=== PATIENT | male | born 1940 | race Hispanic/Latino ===

== ENCOUNTER 2020-07-04 19:56 | Emergency (ER) | payer OTHER, SELFPAY ==
[2020-07-04] MEDS ORDERED: Fentanyl 100 MCG/2 ML VIAL ONE ×2 (20:32→20:48)
[2020-07-05] MEDS ORDERED: PROPOFOL 20 ML ONE
== END 2020-07-05 02:09 ==
LOC: CSHERS 19:56
DX: S43.015A Anterior dislocation of left humerus, initial encounter (principal); I25.10 Atherosclerotic heart disease of native coronary artery without angina pectoris; I11.0 Hypertensive heart disease with heart failure; I50.9 Heart failure, unspecified; Z87.19 Personal history of other diseases of the digestive system; Z86.711 Personal history of pulmonary embolism; Z79.01 Long term (current) use of anticoagulants; Z79.899 Other long term (current) drug therapy; X50.1XXA Overexertion from prolonged static or awkward postures, initial encounter
CPT/HCPCS: 23650; 96374; 99152; J2704; J3010

== ENCOUNTER 2021-03-15 22:21 | Observation (INO) | payer OTHER ==
[2021-03-15] MEDS ORDERED: Senokot S 8.6-50 MG TAB PO PRN (22:51)
[2021-03-15] MEDS ORDERED: Calcium Carbonate 500 MG ChewTAB PO PRN (22:51)
[2021-03-15] MEDS ORDERED: HYDROcodone/Acetaminophen 5/325 mg Tablet PO PRN (22:51)
[2021-03-15] MEDS ORDERED: Nitroglycerin 0.4 MG TAB (25 Tab Bottle) SL PRN (22:51)
[2021-03-15] MEDS ORDERED: Ondansetron PF 4 MG/2 ML Vial IVP PRN (22:51)
[2021-03-16] MEDS ORDERED: Atorvastatin Calcium 40 MG TAB PO SCH ×2 (00:30→21:00)
[2021-03-16] MEDS ORDERED: Carvedilol 3.125 MG TAB PO SCH (00:30)
[2021-03-16] MEDS ORDERED: Sodium Chloride 0.9% 500 ML IV SCH (00:30)
[2021-03-16] MEDS ORDERED: Carvedilol 3.125 MG TAB ONE (03:07)
[2021-03-16] MEDS ORDERED: Atorvastatin Calcium 40 MG TAB ONE (03:08)
[2021-03-16 05:13] LABS: Troponin I 0.021 ng/mL (< 0.028)
[2021-03-16 05:33] VITALS: BMI 25.0
[2021-03-16 05:52] LABS: INR-International Normal Ratio 1.1; PTT 27.7 sec (22.0-33.0)
[2021-03-16 06:15] LABS: #Eosinphils 0.2 10x3/uL (0.0-0.5); #Monocytes 0.7 10x3/uL (0.0-1.1); #Neutrophils 4.1 10x3/uL (1.5-8.4); %Basophils 0.1 % (0.0-2.0); %Eosinophils 3.2 % (0.0-6.0); %Lymphocytes 27.3 % (18.0-47.0); %Monocytes 9.5 % (0.0-10.0); %Neutrophils 59.8 % (40.0-75.0); Hemoglobin 12.1 g/dL (13.5-17.5); Mean Corpuscular HGB CONC 32.1 g/dL (32.0-36.0); Mean Corpuscular Hemoglobin 28.7 pg (27.0-33.0); Mean Corpuscular Volume 89.5 fl (81.2-95.1); Mean Platelet Volume 10.9 fl (7.4-10.4); Platelet Count 150 10x3/uL (150-450); RBC Distribution Width 13.9 % (11.5-14.5); Red Blood Cell (RBC) Count 4.21 10x6/uL (4.32-5.72); White Blood Cell (WBC) Count 6.9 10x3/uL (3.5-10.5)
[2021-03-16 06:17] LABS: Anion Gap 11 mmol/L (10-20); BUN (Urea Nitrogen) 20 mg/dL (8.4-25.7); Calc. Creatinine Clearance 64 mL/min (70-130); Calcium 9.1 mg/dL (7.8-10.44); Carbon Dioxide 27 mmol/L (23-31); Cardiac Risk 3.5 (Less than 4.5); Chloride 108 mmol/L (98-107); Cholesterol 91 mg/dl (< 200 Desired); Glucose 96 mg/dL (83-110); HDL Cholesterol 26 mg/dL (>60 Neg Risk); LDL Cholesterol, Calculated 47 mg/dL; Potassium 4.1 mmol/L (3.5-5.1); Sodium 142 mmol/L (136-145); Triglycerides 90 mg/dL (Less than 150)
[2021-03-16 06:24] LABS: Troponin I 0.019 ng/mL (< 0.028)
[2021-03-16] MEDS: Spironolactone 25 MG TAB PO SCH (08:22)
[2021-03-16] MEDS: Lisinopril 2.5 MG TAB PO SCH (08:22)
[2021-03-16] MEDS: Aspirin Chewable 81 MG TAB PO SCH (08:22)
[2021-03-16] MEDS: Carvedilol 6.25 MG TAB PO SCH ×2 (08:23→17:32)
[2021-03-16] MEDS: Famotidine 20 MG TAB PO SCH ×2 (08:23→20:59)
[2021-03-16] MEDS: Acetaminophen 325 MG TAB PO PRN (08:31)
[2021-03-16] MEDS ORDERED: Enoxaparin Sodium 80 MG/0.8 ML SYRINGE SC SCH (09:00)
[2021-03-16] MEDS ORDERED: Lidocaine 5% Patch TD PRN (17:08)
[2021-03-16] MEDS: Apixaban 5 MG TAB PO SCH (20:59)
[2021-03-16] MEDS ORDERED: Terazosin HCl 1 MG CAP PO SCH (21:00)
[2021-03-17] MEDS: Acetaminophen 325 MG TAB PO PRN (06:57)
[2021-03-17] MEDS: Lisinopril 2.5 MG TAB PO SCH (08:59)
[2021-03-17] MEDS: Aspirin Chewable 81 MG TAB PO SCH (08:59)
[2021-03-17] MEDS: Carvedilol 6.25 MG TAB PO SCH ×2 (09:00→17:05)
[2021-03-17] MEDS: Famotidine 20 MG TAB PO SCH (09:00)
[2021-03-17] MEDS: Apixaban 5 MG TAB PO SCH (09:00)
[2021-03-17] MEDS: Spironolactone 25 MG TAB PO SCH (09:00)
[2021-03-17 17:07] VITALS: BP 146/69; TEMP 97.7
== END 2021-03-17 17:16 ==
LOC: INTOOBSV 22:21 → CSHTELE 22:21
PROVIDERS: ADMIT Student in an Organized Health Care Education/Training Program; ATTEND Family Medicine
DX: R07.9 Chest pain, unspecified (principal); M25.512 Pain in left shoulder; G89.29 Other chronic pain; I13.0 Hypertensive heart and chronic kidney disease with heart failure and stage 1 through stage 4 chronic kidney disease, or unspecified chronic kidney disease; I50.42 Chronic combined systolic (congestive) and diastolic (congestive) heart failure; N18.2 Chronic kidney disease, stage 2 (mild); Z86.711 Personal history of pulmonary embolism; E78.5 Hyperlipidemia, unspecified; Z86.718 Personal history of other venous thrombosis and embolism; I25.10 Atherosclerotic heart disease of native coronary artery without angina pectoris; Z95.5 Presence of coronary angioplasty implant and graft; Z87.891 Personal history of nicotine dependence; D68.8 Other specified coagulation defects; Z79.82 Long term (current) use of aspirin; Z79.01 Long term (current) use of anticoagulants; Z79.899 Other long term (current) drug therapy
CPT/HCPCS: 36415; 80048; 80061; 84484; 85025; 85610; 85730; 93306; 96372; G0378; J1650; J7030

== ENCOUNTER 2021-12-18 15:10 | Emergency (ER) | payer OTHER ==
[2021-12-18 15:50] LABS: #Eosinphils 0.1 10x3/uL (0.0-0.5); #Monocytes 0.5 10x3/uL (0.0-1.1); #Neutrophils 5.3 10x3/uL (1.5-8.4); %Basophils 0.4 % (0.0-2.0); %Eosinophils 1.7 % (0.0-6.0); %Lymphocytes 16.1 % (18.0-47.0); %Monocytes 6.9 % (0.0-10.0); %Neutrophils 74.8 % (40.0-75.0); Hemoglobin 12.5 g/dL (13.5-17.5); Mean Corpuscular HGB CONC 32.9 g/dL (32.0-36.0); Mean Corpuscular Hemoglobin 28.7 pg (27.0-33.0); Mean Corpuscular Volume 87.2 fl (81.2-95.1); Mean Platelet Volume 10.9 fl (7.4-10.4); Platelet Count 146 10x3/uL (150-450); RBC Distribution Width 14.1 % (11.5-14.5); Red Blood Cell (RBC) Count 4.36 10x6/uL (4.32-5.72); White Blood Cell (WBC) Count 7.1 10x3/uL (3.5-10.5)
[2021-12-18 16:06] LABS: ALT (SGPT) 14 U/L (8-55); AST (SGOT) 17 U/L (5-34); Albumin 3.7 g/dL (3.4-4.8); Alkaline Phosphatase 99 U/L (40-110); Anion Gap 11 mmol/L (10-20); BUN (Urea Nitrogen) 26 mg/dL (8.4-25.7); Bilirubin, Total 0.8 mg/dL (0.2-1.2); CK (CPK) 142 U/L (30-200); Calc. Creatinine Clearance 0 mL/min (70-130); Calcium 9.1 mg/dL (7.8-10.44); Carbon Dioxide 26 mmol/L (23-31); Chloride 107 mmol/L (98-107); Estimated GFR 49; Globulin 2.2 g/dL (2.4-3.5); Glucose 140 mg/dL (83-110); Lipase 38 U/L (8-78); Potassium 4.4 mmol/L (3.5-5.1); Protein, Total 5.9 g/dL (5.8-8.1); Sodium 140 mmol/L (136-145)
[2021-12-18 16:06] LABS: PTT 45.9 sec (22.0-33.0); Prothrombin Time 49.9 sec (9.5-12.1)
[2021-12-18 16:42] LABS: SARS-CoV-2 NAA Rapid Test Not Detected (NotDetected)
[2021-12-18 20:29] LABS: Troponin I 0.019 ng/mL (< 0.028)
== END 2021-12-18 22:42 | disposition short-term general hospital (02) ==
LOC: CSHERS 15:10
DX: R07.2 Precordial pain (principal); I11.0 Hypertensive heart disease with heart failure; I50.9 Heart failure, unspecified; I25.10 Atherosclerotic heart disease of native coronary artery without angina pectoris; K21.9 Gastro-esophageal reflux disease without esophagitis; E78.5 Hyperlipidemia, unspecified; Z79.01 Long term (current) use of anticoagulants; Z79.899 Other long term (current) drug therapy; Z20.822 Contact with and (suspected) exposure to COVID-19; Z87.891 Personal history of nicotine dependence
CPT/HCPCS: 36415; 71045; 80053; 82550; 83690; 84484; 85025; 85610; 85730; 93005; U0002